=== PATIENT | female | born 1975 | race Caucasian/White ===

== ENCOUNTER 2021-11-06 23:46 | Inpatient (IN) ==
[2021-11-07] MEDS ORDERED: Aspirin 81 MG TAB.CHEW PO ONE (00:06)
[2021-11-07] MEDS ORDERED: *HR* Ticagrelor 90 MG TABLET PO ONE (00:10)
[2021-11-07] MEDS ORDERED: *HR* Heparin 5,000 UNIT/ML VIAL IVP ONE (00:11)
[2021-11-07] MEDS ORDERED: *HR* FentaNYL (PF) 100 MCG/2 ML VIAL IVP ONE (00:11)
[2021-11-07] MEDS ORDERED: *HR* Heparin 10,000 UNIT/10 ML VIAL ONE (00:18)
[2021-11-07] MEDS ORDERED: *HR* FentaNYL (PF) 100 MCG/2 ML VIAL ONE (00:18)
[2021-11-07] MEDS ORDERED: *HR* Midazolam HCl 2 MG/2 ML VIAL ONE (00:18)
[2021-11-07] MEDS ORDERED: Tirofiban 12.5 MG/250ML 12.5 MG/250 ML BAG ONE (00:18)
[2021-11-07] MEDS ORDERED: 0.9 % Sodium Chloride 1,000 ML ONE (00:18)
[2021-11-07] MEDS ORDERED: Nitroglycerin 1,000 MCG/5 ML VIAL IV ONE (00:19)
[2021-11-07] MEDS ORDERED: Heparin 1,000 UNITS/500 mL 500 ML ONE (00:19)
[2021-11-07] MEDS ORDERED: Iopamidol - 370 200 ML INFUS..BTL ONE (00:19)
[2021-11-07 00:24] LABS: Basophils % 0.3 %; Eosinophils # 0.1 K/mcL (0.0-0.6); Eosinophils % 0.5 %; Hematocrit 49.3 % (35.3-44.9); Hemoglobin 16.5 g/dL (11.5-15.4); Immature Granulocytes % 0.5 % (0-4); Lymphocytes # 3.1 K/mcL (0.6-4.6); Lymphocytes % 20.3 %; Mean Corpuscular HGB Conc 33.5 g/dL (31.6-35.5); Mean Corpuscular Hemoglobin 32.1 pg (28.0-33.3); Mean Corpuscular Volume 95.9 fL (83.0-100.0); Mean Platelet Volume 9.4 fL (9.4-12.4); Monocytes # 0.7 K/mcL (0.0-1.3); Monocytes % 4.4 %; Neutrophils # 11.2 K/mcL (1.6-8.9); Platelet Count 367 K/mcL (140-400); Red Blood Count 5.14 M/mcL (3.82-4.97); Red Cell Distribution Width 13.2 % (11.5-14.5); White Blood Count 15.1 K/mcL (4.3-11.1)
[2021-11-07 00:35] LABS: BUN/Creatinine Ratio 23 (6-26); Blood Urea Nitrogen 22 mg/dL (6-20); Calcium 10.2 mg/dL (8.6-10.3); Carbon Dioxide 21 mEq/L (23-29); Chloride 107 mEq/L (98-107); Glucose 173 mg/dL (70-105); Osmolality,Calculated 293 (280-300); Sodium 138 mEq/L (136-145); eGFR For African Americans > 60 (> 60); eGFR For Non-African Americans > 60 (> 60)
[2021-11-07 00:39] LABS: Troponin I 0.27 ng/mL (< 0.04)
[2021-11-07 00:40] LABS: Prothrombin Time 11.1 Seconds (9.4-12.1)
[2021-11-07 00:43] LABS: Activated Partial Thrombo Time 33.6 Seconds (26.0-36.0)
[2021-11-07] MEDS ORDERED: Perflutren Lipid Microsphere 1.3 ML in 0.9 % Sodium Chloride 8.7 ML IVP PRN (00:47)
[2021-11-07] MEDS ORDERED: *HR* Atropine Sulfate 1 MG/10 ML SYRINGE ONE (00:51)
[2021-11-07] MEDS ORDERED: Tirofiban 12.5 MG/250ML 12.5 MG/250 ML BAG IVC SCH (01:00)
[2021-11-07] MEDS ORDERED: Nitroglycerin 0.4 MG TAB.SUBL SL PRN (08:34)
[2021-11-07] MEDS: *HR* Ticagrelor 90 MG TABLET PO SCH ×2 (08:47→20:07)
[2021-11-07] MEDS: Metoprolol XL (24 HR) Succ 25 MG TAB.ER.24H PO SCH (08:47)
[2021-11-07] MEDS: Aspirin 81 MG TAB.CHEW PO SCH (08:47)
[2021-11-07] MEDS: Nicotine 21 MG PATCH.TD24 TD SCH (10:10)
[2021-11-07 10:38] LABS: Basophils % 0.3 %; Eosinophils # 0.1 K/mcL (0.0-0.6); Eosinophils % 0.6 %; Hematocrit 42.2 % (35.3-44.9); Immature Granulocytes % 0.1 % (0-4); Lymphocytes # 1.9 K/mcL (0.6-4.6); Lymphocytes % 18.1 %; Mean Corpuscular HGB Conc 33.6 g/dL (31.6-35.5); Mean Corpuscular Hemoglobin 31.8 pg (28.0-33.3); Mean Corpuscular Volume 94.6 fL (83.0-100.0); Mean Platelet Volume 9.4 fL (9.4-12.4); Monocytes # 0.6 K/mcL (0.0-1.3); Monocytes % 5.7 %; Neutrophils # 7.9 K/mcL (1.6-8.9); Platelet Count 283 K/mcL (140-400); Red Blood Count 4.46 M/mcL (3.82-4.97); Red Cell Distribution Width 13.2 % (11.5-14.5); Segmented Neutrophils % 75.2 %; White Blood Count 10.5 K/mcL (4.3-11.1)
[2021-11-07 10:42] LABS: Hemoglobin 14.2 g/dL (11.5-15.4)
[2021-11-07 10:57] LABS: BUN/Creatinine Ratio 21 (6-26); Blood Urea Nitrogen 16 mg/dL (6-20); Calcium 9.2 mg/dL (8.6-10.3); Carbon Dioxide 23 mEq/L (23-29); Chloride 112 mEq/L (98-107); Chol/HDL Ratio 6.4 (0-4.9); Cholesterol 212 mg/dL (< 200); Glucose 132 mg/dL (70-105); HDL Cholesterol 33 mg/dL (40-59); LDL Cholesterol,Calculated 153 mg/dL (< 100); Osmolality,Calculated 293 (280-300); Potassium 3.6 mEq/L (3.5-5.1); Sodium 140 mEq/L (136-145); Triglycerides 130 mg/dL (< 150); eGFR For African Americans > 60 (> 60); eGFR For Non-African Americans > 60 (> 60)
[2021-11-07 11:27] LABS: Estimated Average Glucose 128 mg/dl; Hemoglobin A1C 6.1 %
[2021-11-07] MEDS: *HR* Heparin 5,000 UNIT/ML VIAL SQ SCH (17:02)
[2021-11-08] MEDS: *HR* Heparin 5,000 UNIT/ML VIAL SQ SCH ×2 (05:01→17:39)
[2021-11-08] MEDS: Metoprolol XL (24 HR) Succ 25 MG TAB.ER.24H PO SCH (09:25)
[2021-11-08] MEDS: *HR* Ticagrelor 90 MG TABLET PO SCH (09:25)
[2021-11-08] MEDS: Aspirin 81 MG TAB.CHEW PO SCH (09:27)
[2021-11-08] MEDS: Nicotine 21 MG PATCH.TD24 TD SCH (09:27)
[2021-11-08 13:14] VITALS: TEMP 98.6
[2021-11-08 13:17] VITALS: BP 126/79; PULSE 88; O2SAT 91
== END 2021-11-08 18:45 | disposition home or self-care (01) | DRG 247 ==
LOC: EMEROOARM 23:46 → ICNU 11-07 00:41 → 2NENU 11-07 14:43
PROVIDERS: ADMIT Internal Medicine Cardiovascular Disease; ATTEND Internal Medicine Cardiovascular Disease